=== PATIENT | male | born 1950 | race Caucasian/White ===

== ENCOUNTER 2018-06-08 05:55 | Outpatient (CLI) | payer OTHER ==
[~2018-06-08] VITALS: Ht 188 cm; Wt 97.5 kg
[2018-06-08] MEDS ORDERED: AMIO200T4 PO (13:12)
[2018-06-08] MEDS ORDERED: MORP30TA PO (13:35)
[2018-06-08] MEDS ORDERED: HYDR25TA4 PO (13:35)
[2018-06-08] MEDS ORDERED: ASPI-586 PO (13:35)
[2018-06-08] MEDS ORDERED: IPRA3AMP31 IH (13:35)
[2018-06-08] MEDS ORDERED: FLUT1DIS26 IH (13:35)
[2018-06-08] MEDS ORDERED: MONT10TA21 PO (13:35)
[2018-06-08] MEDS ORDERED: ATOR20TA66 PO (13:35)
== END 2018-06-08 13:40 | disposition home or self-care (01) ==
LOC: PREOP 05:55
PROVIDERS: ATTEND Orthopaedic Surgery
DX: Z01.818 Encounter for other preprocedural examination (principal)

== ENCOUNTER 2018-06-15 05:52 | Day surgery (SDC) | payer MEDICARE, OTHER ==
[~2018-06-15] VITALS: Ht 188 cm; Wt 92.2 kg
[~2018-06-15 05:52] MED LIST: AMIO200T4 PO; ASPI-586 PO; ATOR20TA66 PO; FLUT1DIS26 IH; HYDR25TA4 PO; IPRA3AMP31 IH; MONT10TA21 PO; MORP30TA PO
[2018-06-15 06:15] VITALS: BP 151/77
[2018-06-15] MEDS ORDERED: ceFAZolin 2 GM IV Premixed 50 ML IV ONE (06:15)
[2018-06-15] MEDS ORDERED: VANCOMYCIN 1000 MG/VIAL ONE (06:34)
[2018-06-15] MEDS ORDERED: GENTAMICIN 40 MG/ML 2 ML INJ SDV ONE (06:34)
[2018-06-15] MEDS ORDERED: BUP/EPI 0.5% 1:200,000 (SENSORCAINE) 30 ML VIAL ONE (06:34)
[2018-06-15] MEDS ORDERED: SEVOFLURANE (ULTANE) 15 ML INHAL SOLN ONE ×4 (07:00→08:16)
[2018-06-15] MEDS ORDERED: DEXAMETHASONE 10 MG/ML (DECADRON) 1 ML VIAL ONE (07:00)
[2018-06-15] MEDS ORDERED: ONDANSETRON 4 MG/2 ML (SDV) Z0FRAN ONE (07:00)
[2018-06-15] MEDS ORDERED: proPOfol 200 MG/20 ML (DIPRIVAN) VIAL IV ONE (07:00)
[2018-06-15] MEDS ORDERED: LIDOCAINE PF 2% 5 ML (XYLOCAINE) VIAL ONE (07:00)
[2018-06-15] MEDS ORDERED: SUCCINYLCHOLINE INJ 100 MG/5 ML SYR ONE (07:00)
[2018-06-15] MEDS ORDERED: MIDAZOLAM 2 MG/2 ML (VERSED) VIAL ONE (07:01)
[2018-06-15] MEDS ORDERED: fentaNYL INJECTION 100 MCG/2 ML AMP ONE (07:01)
[2018-06-15] MEDS: LACTATED RINGERS 1,000 ML IV PRN ×2 (07:30→08:15)
[2018-06-15] MEDS ORDERED: BACITRACIN 100,000 UNIT/NS 1000 ML POUR BOTTLE IR ONE ×2 (07:45)
[2018-06-15] MEDS ORDERED: fentaNYL INJECTION 250 MCG/5 ML AMP ONE (07:55)
[2018-06-15] MEDS ORDERED: PROPOFOL INJECTION 50 ML IV ONE (08:17)
[2018-06-15] MEDS ORDERED: HYDR-4226 PO (08:47)
--- NOTE | 2018-06-15 08:48 | Discharge Inst-Simple/Standard ---
Discharge Inst-Standard Discharge Medications New, Converted or Re-Newed RX: RX on Chart Patient Instructions/Follow Up Plan of Care/Instructions/FU: dont bend lift twist push pull or reach 5lb weight restriciton keep incision covered clean and dry may resume aspirin on 06/20/2018 Activity as Tolerated: No Discharge Diet: Regular Diet Return to [facility] For: shortness of breath fever chills chest pain MOOK ALICEA Jun 15, 2018 08:48
[2018-06-15] MEDS ORDERED: morphine INJ 10 MG/ML 1ML (SYR OR VIAL) ONE (08:55)
[2018-06-15] MEDS ORDERED: ONDANSETRON 4 MG/2 ML (SDV) Z0FRAN IVP PRN (09:00)
[2018-06-15] MEDS ORDERED: morphine INJ 10 MG/ML 1ML (SYR OR VIAL) IVP ONE (09:00)
[2018-06-15] MEDS ORDERED: HYDROmorphone 2 MG/ML VIAL (DILAUDID) IV ONE (09:00)
[2018-06-15] MEDS ORDERED: RT-ALBUTEROL SULF 2.5 MG/3 ML PRE-MIX VIAL ONE (09:04)
[2018-06-15] MEDS ORDERED: RT-ALBUTEROL SULF 2.5 MG/3 ML PRE-MIX VIAL INH ONE (09:15)
[2018-06-15 09:40] VITALS: BP 151/77
[2018-06-15 09:46] VITALS: BP 151/76
[2018-06-15 10:05] VITALS: BP 140/75
[2018-06-15 10:35] VITALS: BP 143/75
--- NOTE | 2018-06-15 11:19 | Diagnostic Imaging Report ---
INDICATION: Spinal cord stimulator placement. TECHNIQUE: Single intraprocedural image thoracic spine, 8:13 AM. CORRELATION STUDY: None FINDINGS: Retraction of instrumentation as well as posterior spinal fixation hardware is noted. There is a thoracic spinal stimulator placed over the thoracic segment. Positioning is somewhat indeterminate from the single projection. Fluoroscopy time: 5 seconds IMPRESSION: 1. Fluoroscopy utilized for assistance in placement of a spinal cord stimulator. Dictated by: Dictated on workstation # [id number]
--- NOTE | 2018-06-15 14:33 | Anesthesia-General Post-Op ---
General Patient Condition Mental Status/LOC: Same as Preop Cardiovascular: Satisfactory Nausea/Vomiting: Absent Respiratory: Satisfactory Pain: Controlled Complications: Absent Post Op Complications Complications None Follow Up Care/Instructions Patient Instructions None needed. Anesthesia/Patient Condition Patient Condition Patient is doing well, no complaints, stable vital signs, no apparent adverse anesthesia problems. No complications reported per nursing. JANNETH ARREGUIN CRNA Jun 15, 2018 14:33
--- NOTE | 2018-06-15 15:18 | OPERATIVE REPORT ---
DATE OF SERVICE: 06/15/2018 SURGEON: Tacho Suarez DO MEDICAL COLLECTOR: BOBBY Malik. This is a medically necessary procedure. Assistance was necessary for retraction of vital neurovascular structures. Without an foundation assistant, the procedure would not be possible. PREOPERATIVE DIAGNOSES: 1. Neuropathic pain syndrome. 2. Chronic pain syndrome. 3. Lumbar radiculopathy. POSTOPERATIVE DIAGNOSES: 1. Neuropathic pain syndrome. 2. Chronic pain syndrome. 3. Lumbar radiculopathy. PROCEDURES PERFORMED: 1. Placement of thoracic spinal cord stimulator paddle lead via thoracic laminotomy. 2. Placement of pulse generator. 3. Complex programming. COMPLICATIONS: None. SPECIMEN SENT: None. DRAINS PLACED: None. ANESTHESIA: General endotracheal tube anesthesia with local anesthetic. ESTIMATED BLOOD LOSS: See anesthesia records. HISTORY OF PRESENT ILLNESS: The patient is a very pleasant 68-year-old gentleman who came to me after a successful percutaneous spinal cord stimulator trial. He wished to proceed with placement of permanent. He understood the risks and benefits. OPERATION: The patient was identified by name on wrist band in the preoperative holding area. His operative site was signed, consent was signed. SCDs were placed. Dermabond was hooked up and antibiotics were started. He was taken to the operating room theater and placed under general endotracheal tube anesthesia and then transferred to the operating room table in the prone position. He was prepped and draped in usual sterile fashion. Formal timeout was conducted. Midline thoracic incision was then made to proceed with bilateral subperiosteal paraspinal muscular approach exposing the posterior elements of interest. I used a Leksell rongeur followed by high speed bur and Kerrisons to gain access to the epidural space. I then placed a [employer] Penta lead in the midline position behind the T8 vertebra. I anchored that lead into the thoracic fascia, I made a right-sided flank incision. I developed a pocket in the subcutaneous tissue. I used a tunneler to tunnel the leads from the thoracic to the flank incision. I hooked up a pulse generator. Please note, before I hooked up the pulse generator, I did complex programming with a [employer] rep and the neuromonitoring tech. We mapped out the stimulation zones and we were able to determine that we had equal left and right lower extremity stimulation. At this point, I hooked up the pulse generator final tightened it, placed it into the flank wound. I irrigated both wounds, maintained hemostasis. I closed the wound utilizing 0 Vicryl followed by 2-0 Vicryl followed by running 3-0 subcuticular stitch. I applied dressings, took the patient in the supine position to the PACU where he awoke without incident. He tolerated the procedure well. The plan at this time is to discharge the patient today. I will see him back in 2 weeks and knows to avoid any bending, twisting, pushing, pulling. Keep his wound clean and dry. Job ID: [id number] DocumentID: [id number] Dictated Date: 06/15/2018 10:51:01 Film Critic Date: 06/15/2018 15:17:38 Dictated By: DO CONNIE VAZQUEZ
== END 2018-06-15 11:25 | disposition home or self-care (01) ==
LOC: SDC 05:52
PROVIDERS: ATTEND Orthopaedic Surgery
DX: M54.16 Radiculopathy, lumbar region (principal); G89.4 Chronic pain syndrome; Z11.2 Encounter for screening for other bacterial diseases; I10 Essential (primary) hypertension; E78.5 Hyperlipidemia, unspecified; I48.91 Unspecified atrial fibrillation; I35.1 Nonrheumatic aortic (valve) insufficiency; G47.33 Obstructive sleep apnea (adult) (pediatric); J44.9 Chronic obstructive pulmonary disease, unspecified; F17.210 Nicotine dependence, cigarettes, uncomplicated; Z79.899 Other long term (current) drug therapy
CPT/HCPCS: 87081